=== PATIENT | female | born 1970 | race American Indian/Alaskan Native ===

== ENCOUNTER 2016-09-16 19:10 | Emergency (ER) | payer MEDICAID ==
[2016-09-16 19:19] VITALS: BP 153/98
--- NOTE | 2016-09-16 19:32 | Emergency Department Report ---
Chief Complaint: Abdominal Pain Stated Complaint: RIGHT SIDE PAIN Time Seen by Provider: 09/16/16 19:20 - HPI History of Present Illness: Patient is a 46-year-old female who presents complaining of right-sided flank pain 1 week. Patient states pain began around the new year but was resolved and came back last week. Patient described pain as aching-type pain located to right flank. She admits mild nausea Patient denies dysuria or vaginal bleeding. Patient states hysterectomy in 2011. So no longer experiences periods Patient denies fevers/chills/vomiting/chest pain/abdominal pain/dizziness/ headaches or any other problems. - ROS Review of Systems: As noted in HPI - Exam Vital Signs: Vital Signs 09/16/16 19:16 Temperature 98.3 F Pulse Rate 97 H Respiratory 16 Rate Blood Pressure 153/98 O2 Sat by Pulse 98 Oximetry Physical Exam: GENERAL: Alert and oriented x3, no apparent distress, Normal Gait, atraumatic. NECK: Supple. Non edematous, No carotid bruits. No lymphadenopathy or thyromegaly. LUNGS: Symetrical with respiration, No wheezing, no rales or crackles, CTAB. HEART: S1, S2 present, regular rate and rhythm without murmur, no rubs, no gallops. ABDOMEN: No organomegaly was noted,Positive bowel sounds, soft, and non- distended. . Nontender to palpation on all Quadrants, NO CVA tenderness. SKIN: Warm and dry, No lesions, No ulceration or induration present. MSE screening note: Focused history and physical exam performed. Due to findings the following was ordered: ED Medical Decision Making - Medical Decision Making Urinalysis is ordered. Labs ordered. Vital signs stable. Patient is no acute or respiratory distress. Patient alluding to see ED physician. If labs are normal patient can be seen in fast track. ED Disposition for MSE Condition: Stable Instructions: Abdominal Pain (ED)
[2016-09-16] MEDS ORDERED: ZOFRAN ODT PO ONE (19:36)
[2016-09-16 20:09] LABS: Basophils % (Auto) 0.7 % (0.0-1.8); Hematocrit 37.1 % (30.3-42.9); Hemoglobin 12.5 gm/dl (10.1-14.3); Mean Corpuscular HGB Conc 34 % (30-34); Mean Corpuscular Hemoglobin 30 pg (28-32); Mean Corpuscular Volume 89 fl (79-97); Platelet Count 326 K/mm3 (140-440); Red Blood Count 4.16 M/mm3 (3.65-5.03); Red Cell Distribution Width 13.4 % (13.2-15.2); White Blood Count 13.4 K/mm3 (4.5-11.0)
[2016-09-16 20:50] LABS: Bilirubin,Urine NEG (Negative); Blood,Urine SM (Negative); Ketones,Urine NEG (Negative); Leukocyte Esterase,Urine NEG (Negative); Mucus,Urine 2+ /HPF; Nitrite,Urine NEG (Negative); Urobilinogen,Urine < 2.0 mg/dL (<2.0)
[2016-09-16 20:52] LABS: Alanine Aminotransferase 13 units/L (7-56); Albumin 4.1 g/dL (3.9-5); Albumin/Globulin Ratio 1.2 %; Alkaline Phosphatase 112 units/L (35-129); Anion Gap 18 mmol/L; BUN/Creatinine Ratio 14.28; Bilirubin,Total 0.2 mg/dL (0.1-1.2); Blood Urea Nitrogen 10 mg/dL (7-17); Calcium 9.3 mg/dL (8.4-10.2); Carbon Dioxide 25 mmol/L (22-30); Glucose 223 mg/dL (65-100); Potassium 4.2 mmol/L (3.6-5.0); Sodium 136 mmol/L (137-145); Total Protein 7.5 g/dL (6.3-8.2)
[2016-09-16] MEDS ORDERED: ZOFRAN ODT ONE ×2 (21:53→22:00)
--- NOTE | 2016-09-17 07:35 | ED Elopement Review ---
ED Pt Elopement review - Results review Lab results: Laboratory Tests 09/16/16 09/16/16 09/16/16 19:38 19:53 19:53 WBC 13.4 H RBC 4.16 Hgb 12.5 Hct 37.1 MCV 89 MCH 30 MCHC 34 RDW 13.4 Plt Count 326 Lymph % (Auto) 21.7 [place] % (Auto) 8.0 H Eos % (Auto) 3.0 Baso % (Auto) 0.7 Lymph # 2.9 [place]ies # 1.1 H Eos # 0.4 Baso # 0.1 Seg Neutrophils % 66.6 Seg Neutrophils # 8.9 H Sodium 136 L Potassium 4.2 Chloride 97.0 L Carbon Dioxide 25 Anion Gap 18 BUN 10 Creatinine 0.7 Estimated GFR > 60 BUN/Creatinine Ratio 14.28 Glucose 223 H Calcium 9.3 Total Bilirubin 0.2 AST 12 ALT 13 Alkaline Phosphatase 112 Total Protein 7.5 Albumin 4.1 Albumin/Globulin Ratio 1.2 Urine Color Yellow Urine Turbidity Slightly-cloudy Urine pH 5.0 Ur Specific [place] 1.026 Urine Protein 30 mg/dl Urine Glucose (UA) 150 Urine Ketones Neg Urine Blood Sm Urine Nitrite Neg Urine Bilirubin Neg Urine Urobilinogen < 2.0 Ur Leukocyte Esterase Neg Urine WBC (Auto) 1.0 Urine RBC (Auto) 31.0 U Epithel Cells (Auto) 10.0 Urine Mucus 2+ Urine HCG, Qual Negative - Call Back decision Pt Call Back Decision: No action required
== END 2016-09-16 22:30 | disposition left against medical advice (07) ==
LOC: ED 19:10
DX: R10.9 Unspecified abdominal pain (principal); R11.0 Nausea; Z53.21 Procedure and treatment not carried out due to patient leaving prior to being seen by health care provider
CPT/HCPCS: 36415; 80053; 81001; 81025; 85025; Q0162